=== PATIENT | female | born 1955 | race Caucasian/White ===

== ENCOUNTER 2017-03-09 17:32 | Emergency (ER) | payer MEDICAID ==
[2017-03-09 18:52] LABS: PROTHROMBIN TIME 22.2 SEC (11.4-15.4)
[2017-03-09 18:54] LABS: ABSOLUTE LYMPHOCYTES (AUTO) 1.9 10^3/uL (0.5-4.7); ABSOLUTE MONOCYTES (AUTO) 1.5 10^3/uL (0.1-1.4); ABSOLUTE NEUT (AUTO) 8.3 10^3/uL (1.7-8.2); BASOPHILS % (AUTO) 0.3 % (0-2); EOSINOPHILS % (AUTO) 0.2 % (0-6); HEMATOCRIT 24.3 % (36.0-47.0); HEMOGLOBIN 8.4 g/dL (12.0-15.5); HGB HCT DIFFERENCE 0.9; LYMPHOCYTES % (AUTO) 16.3 % (13-45); MEAN CORPUSCULAR HEMOGLOBIN 36.1 pg (27.0-33.4); MEAN CORPUSCULAR HGB CONC 34.5 g/dL (32.0-36.0); MEAN CORPUSCULAR VOLUME 105 fl (80-97); MONOCYTES % (AUTO) 12.9 % (3-13); RED BLOOD COUNT 2.32 10^6/uL (3.72-5.28); RED CELL DISTRIBUTION WIDTH 14.8 % (11.5-14.0); SEGMENTED NEUTROPHILS % (AUTO) 70.3 % (42-78); WHITE BLOOD COUNT 11.7 10^3/uL (4.0-10.5)
[2017-03-09] MEDS ORDERED: ONDANSETRON HCL INJ/PF 4 MG/2 ML SDV IV ONE (19:03)
[2017-03-09] MEDS ORDERED: NORMAL SALINE 500 ML IV ONE (19:03)
[2017-03-09 19:20] LABS: ALANINE AMINOTRANSFERASE 42 U/L (9-52); ALBUMIN 2.5 g/dL (3.5-5.0); ALKALINE PHOSPHATASE 219 U/L (38-126); ANION GAP 6 (5-19); ASPARTATE AMINO TRANSFERASE 88 U/L (14-36); BILIRUBIN,DIRECT 1.7 mg/dL (0.0-0.4); BILIRUBIN,TOTAL 4.1 mg/dL (0.2-1.3); BLOOD UREA NITROGEN 47 mg/dL (7-20); CALCIUM 8.1 mg/dL (8.4-10.2); CARBON DIOXIDE 25 mmol/L (22-30); CHLORIDE 87 mmol/L (98-107); CREATININE RESULT 0.94 mg/dL (0.52-1.25); GLUCOSE 103 mg/dL (75-110); TOTAL PROTEIN 6.3 g/dL (6.3-8.2)
--- NOTE | 2017-03-09 19:27 | ER Document Report ---
ED General - General Chief Complaint: Nausea/Vomiting Stated Complaint: VOMITING Time Seen by Provider: 03/09/17 17:59 Mode of Arrival: Medic Information source: Patient Notes: 62-year-old female presents with history of cirrhosis with complaints of abdominal pain and swelling. Notes she had paracentesis performed on that night she went back because of bleeding and a suture was placed. States since then the bruising has worsened TRAVEL OUTSIDE OF THE [place] IN LAST 30 DAYS: No - HPI Onset: Other Onset/Duration: Persistent Quality of pain: Achy Severity: Mild Pain Level: 1 Associated symptoms: Other Exacerbated by: Denies Relieved by: Denies Similar symptoms previously: Yes Recently seen / treated by doctor: Yes - Related Data Allergies/Adverse Reactions: No Known Allergies Allergy (Verified 03/09/17 17:48) Past Medical History - Social History Smoking Status: Never Smoker Cigarette use (# per day): No Chew tobacco use (# tins/day): No Smoking Education Provided: No Frequency of alcohol use: None Drug Abuse: None Family History: Reviewed & Not Pertinent Renal/ Medical History: Denies: Hx Peritoneal Dialysis - Immunizations Hx Diphtheria, Pertussis, Tetanus Vaccination: Yes Review of Systems - Review of Systems Notes: PHYSICAL EXAMINATION: GENERAL: Ill appearing female HEAD: Atraumatic, normocephalic. EYES: Pupils equal round and reactive to light, extraocular movements intact, conjunctiva are normal. ENT: Nares patent, oropharynx clear without exudates. Moist mucous membranes. NECK: Normal range of motion, supple without lymphadenopathy LUNGS: Breath sounds clear to auscultation bilaterally and equal. No wheezes rales or rhonchi. HEART: Regular rate and rhythm without murmurs ABDOMEN: Distended abdomen large area of ecchymosis from the right scapular region to the right hip to the right groin across the left lower abdomen Female : deferred Musculoskeletal: Normal range of motion, no pitting or edema. No cyanosis. NEUROLOGICAL: Cranial nerves grossly intact. Normal speech, normal gait. Normal sensory, motor exams PSYCH: Normal mood, normal affect. SKIN: Jaundiced Physical Exam - Vital signs Vitals: Temp Pulse Resp BP Pulse Ox 97.7 F 95 16 96/55 L 98 03/09/17 17:36 03/09/17 17:36 03/09/17 17:36 03/09/17 17:36 03/09/17 17:36 Course - Re-evaluation Re-evalutation: 03/09/17 19:26 CT pending, elevated lactic acid is noted 03/09/17 19:54 Patient is noted to be quite hyponatremic hypotensive 03/09/17 20:00 Spoke with physician at [facility] ,noted that he cannot find patient in thier system dr Garcia paged 03/09/17 21:28 Dr Garcia defers [facility] paged 03/09/17 21:55 Dr Hong accepts to [facility] no beds available 03/09/17 22:21 Wendy paged 03/09/17 22:24 New mariusz paged 03/09/17 22:44 Dr Igor gonsales accepted , awaiting room assignement Patient is breathing much better on BiPAP at this time 03/09/17 22:47 Repeat lactic acid is now 7, there is still no source of infection but I will give a dose of antibiotics 03/09/17 23:09 Pt awaiting transfer and is stable - Vital Signs Vital signs: Temp Pulse Resp BP Pulse Ox 97.7 F 95 26 H 113/76 100 03/09/17 17:36 03/09/17 17:36 03/09/17 22:12 03/09/17 21:20 03/09/17 22:12 - Laboratory Result Diagrams: 03/09/17 18:10 03/09/17 18:10 Laboratory results interpreted by me: 03/09/17 03/09/17 03/09/17 18:10 18:10 18:10 WBC 11.7 H RBC 2.32 L Hgb 8.4 L Hct 24.3 L MCV 105 H MCH 36.1 H RDW 14.8 H Absolute Neutrophils 8.3 H Absolute Monocytes 1.5 H PT 22.2 H Sodium 117.7 L* Potassium 6.1 H* Chloride 87 L BUN 47 H POC Glucose Lactic Acid Calcium 8.1 L Total Bilirubin 4.1 H Direct Bilirubin 1.7 H AST 88 H Alkaline Phosphatase 219 H Ammonia Albumin 2.5 L 03/09/17 03/09/17 03/09/17 18:10 18:10 22:15 WBC RBC Hgb Hct MCV MCH RDW Absolute Neutrophils Absolute Monocytes PT Sodium Potassium Chloride BUN POC Glucose 165 H Lactic Acid 3.7 H Calcium Total Bilirubin Direct Bilirubin AST Alkaline Phosphatase Ammonia < 8.7 L Albumin 03/09/17 22:15 WBC RBC Hgb Hct MCV MCH RDW Absolute Neutrophils Absolute Monocytes PT Sodium Potassium Chloride BUN POC Glucose Lactic Acid 7.0 H Calcium Total Bilirubin Direct Bilirubin AST Alkaline Phosphatase Ammonia Albumin - Diagnostic Test Radiology reviewed: Image reviewed, Reports reviewed Critical Care Note - Critical Care Note Total time excluding time spent on procedures (mins): 64 Comments: 64 minutes of critical care time spent in direct contact evaluating and reevaluating the patient, treating symptoms, reviewing labs and studies and speaking with family and consultants excluding any procedures Discharge - Discharge Clinical Impression: Hyponatremia, Increased lactic acid level, Ecchymosis, Respiratory distress, Hyperkalemia Hypotension Qualifiers: Hypotension type: unspecified hypotension type Qualified Code(s): I95.9 - Hypotension, unspecified Vomiting Qualifiers: Vomiting type: unspecified Vomiting Intractability: non-intractable Nausea presence: with nausea Qualified Code(s): R11.2 - Nausea with vomiting, unspecified Condition: Stable Disposition: [facility]
[2017-03-09] MEDS ORDERED: NORMAL SALINE 1000 ML 1,000 ML IV PRN (19:35)
[2017-03-09 19:42] LABS: VENOUS BLOOD BASE EXCESS -2.1 mmol/L; VENOUS BLOOD HCO3 23.3 mmol/L (20-32); VENOUS BLOOD PCO2 42.6 mmHg (35-63); VENOUS BLOOD PH 7.36 (7.30-7.42)
[2017-03-09 19:49] LABS: POTASSIUM 6.1 mmol/L (3.6-5.0)
[2017-03-09 19:50] LABS: SODIUM 117.7 mmol/L (137-145)
[2017-03-09] MEDS ORDERED: ALBUTEROL SULFATE 0.083% NEB 2.5 MG/3 ML AMPUL NEB ONE (20:00)
[2017-03-09] MEDS ORDERED: DEXTROSE 50%-WATER 25 GM/50 ML DISP.SYRIN IV ONE (20:00)
[2017-03-09] MEDS ORDERED: SODIUM BICARBONATE 8.4% INJ 50 MEQ/50 ML DISP.SYRIN IV ONE (20:00)
[2017-03-09] MEDS ORDERED: INSULIN REG, HUMAN 100 UNIT/ML 3 ML VIAL (PYX) IV ONE (20:00)
--- NOTE | 2017-03-09 21:12 | RADIOLOGY REPORT (SQ) ---
EXAM DESCRIPTION: CT ABD/PELVIS WITH IV ONLY COMPLETED DATE/TIME: 03/09/2017 8:23 pm REASON FOR STUDY: post paracentesis bleeding COMPARISON: None. TECHNIQUE: CT scan of the abdomen and pelvis performed using helical scanning technique with dynamic intravenous contrast injection. No oral contrast. Images reviewed with lung, soft tissue, and bone windows. Reconstructed coronal and sagittal MPR images reviewed. Delayed images for evaluation of the urinary system also acquired. All images stored on PACS. All CT scanners at this facility use dose modulation, iterative reconstruction, and/or weight based d osing when appropriate to reduce radiation dose to as low as reasonably achievable (ALARA). [facility]: Dose Right [facility]: CareDose [facility]: Dose Right [facility]: Teradose 4D [facility]: Front Up CONTRAST TYPE AND DOSE: 61mL Isovue 370 RENAL FUNCTION: Creatinine 0.94 RADIATION DOSE: 15.41mGy. LIMITATIONS: None. FINDINGS: LOWER CHEST: Small left pleural effusion is identified. LIVER: There are multiple varying size relative low density mass lesion suspicious for metastatic dis ease. SPLEEN: Normal size. No focal lesions. PANCREAS: No masses. No significant calcifications. No adjacent inflammation or peripancreatic fluid collections. Pancreatic duct not dilated. GALLBLADDER: No identified stones by CT criteria. No inflammatory changes to suggest cholecystitis. ADRENAL GLANDS: No significant masses or asymmetry. RIGHT KIDNEY AND URETER: No solid masses. No significant calcifications. No hydronephrosis or hyd roureter. LEFT KIDNEY AND URETER: No solid masses. No significant calcifications. No hydronephrosis or hydr oureter. AORTA AND VESSELS: No aneurysm. No dissection. Renal arteries, SMA, celiac without stenosis. RETROPERITONEUM: No retroperitoneal adenopathy, hemorrhage or masses. BOWEL AND PERITONEAL CAVITY: There is extensive intra-abdominal and pelvic ascitic fluid. APPENDIX: Not identified PELVIS: Pelvic ascitic fluid is identified. ABDOMINAL WALL: No masses. No hernias. BONES: No significant or acute findings. OTHER: No other significant finding. IMPRESSION: There is extensive intra-abdominal and pelvic ascitic fluid as noted above. Small left pleural effusion is identified. Other findings as noted above TECHNICAL DOCUMENTATION: JOB ID: [id number] Quality ID # [id number]: Final reports with documentation of one or more dose reduction techniques (e.g., Au tomated exposure control, adjustment of the mA and/or kV according to patient size, use of iterative reconstruction technique) 2010 [employer]- All Rights Reserved
[2017-03-09] MEDS ORDERED: CEFTRIAXONE 1 GM/D5W RTU 50 ML IV ONE (22:45)
[2017-03-09] MEDS ORDERED: ERTAPENEM SODIUM INJ 1 GM VIAL IV ONE (23:08)
[2017-03-09 23:21] VITALS: BP 98/55
--- NOTE | 2017-03-10 21:11 | EKG REPORT ---
SEVERITY:- ABNORMAL ECG - SINUS TACHYCARDIA NONSPECIFIC REPOL ABNORMALITY, DIFFUSE LEADS : Confirmed by: Shawn Chao 10-Mar-2017 21:11:12
== END 2017-03-09 23:59 | disposition short-term general hospital (02) ==
LOC: ER 17:32
DX: E87.1 Hypo-osmolality and hyponatremia (principal); I95.9 Hypotension, unspecified; E87.5 Hyperkalemia; R11.2 Nausea with vomiting, unspecified; R10.9 Unspecified abdominal pain; M79.89 Other specified soft tissue disorders; R58 Hemorrhage, not elsewhere classified; R06.00 Dyspnea, unspecified
CPT/HCPCS: 93005; 99291; 96360; 86900; 86901; 36415; 87040; 86850; 82962; 82140; 85025; 85610; 80053; 82803; 83605; 74177; 93010; 94660; J3490 ×2; J1815; J2405; J7030; J7040; J0696